=== PATIENT | female | born 1975 ===

== ENCOUNTER → 2018-06-11 21:37 | Outpatient (REF) | payer OTHER, SELFPAY ==
[2018-06-11 22:55] LABS: C-Reactive Protein Quant 1.4 mg/dL (<1.0)
[2018-06-11 23:09] LABS: Free T3, Triiodothyronine Free 3.35 pg/mL (2.77-5.27); Free T4, Direct Thyroxine 1.03 ng/dL (0.78-2.19)
[2018-06-11 23:23] LABS: Thyroid Stimulating Hormone 3.78 uIU/mL (0.47-4.68)
[2018-06-14 15:57] LABS: Dehydroepiandrosterone Sulfate 30 mcg/dL (19-231)
[2018-06-14 17:21] LABS: Progesterone < 0.5 ng/mL
[2018-06-14 17:22] LABS: Estradiol < 15 pg/mL
== END ==
LOC: LAB 21:37
PROVIDERS: Visit Provider Naturopath
DX: N80.9 Endometriosis, unspecified (principal)
CPT/HCPCS: 36415; 82533; 82627; 82670; 84144; 84439; 84443; 84481; 86140